=== PATIENT | male | born 1975 | race Caucasian/White ===

== ENCOUNTER 2024-06-21 19:30 | Emergency (ER) | payer BC, OTHER ==
[~2024-06-21] VITALS: Ht 175.3 cm; Wt 74.8 kg
[2024-06-21 19:38] VITALS: BP 133/86; TEMP 98.4; O2SAT 99
[2024-06-21] MEDS ORDERED: AMOX-430 PO (20:29)
[2024-06-21] MEDS ORDERED: AMOX/CLAVULANATE 875 MG TABLET ONE (20:32)
[2024-06-21] MEDS ORDERED: TDAP [DIPH/PERTUSSIS/TET] 0.5 ML VIAL IM ONE (20:32)
[2024-06-21] MEDS: AMOX/CLAVULANATE 875 MG TABLET PO ONE (20:57)
[2024-06-21] MEDS: TDAP [DIPH/PERTUSSIS/TET] 0.5 ML VIAL IM ONE (20:57)
== END 2024-06-21 21:19 | disposition home or self-care (01) ==
LOC: ER 19:33
DX: S61.432A Puncture wound without foreign body of left hand, initial encounter (principal); W54.0XXA Bitten by dog, initial encounter; Y93.89 Activity, other specified; Y92.89 Other specified places as the place of occurrence of the external cause; Y99.8 Other external cause status
CPT/HCPCS: 90715